=== PATIENT | male | born 1950 | race Hispanic/Latino ===

== ENCOUNTER 2018-05-08 02:34 | Emergency (ER) | payer BC ==
[~2018-05-08] VITALS: Ht 157.5 cm; Wt 77.0 kg
[~2018-05-08 02:34] MED LIST: FISH OIL300 MG PO; LOPID600 MG PO; LOVASTATIN10 M1 PO; NAPROSYN500 MG PO; OMEPRAZOLE20 MG PO
[2018-05-08] MEDS ORDERED: AMOXICILLIN500 MG PO (05:42)
[2018-05-08] MEDS ORDERED: CODEINE/GUAIFEN1 SOL PO (05:42)
[2018-05-08 06:00] VITALS: BP 145/74
[2018-05-08] MEDS ORDERED: EPIPEN 2-P0.3 MG/0.3 IM (09:16)
[2018-05-08] MEDS ORDERED: DOXYCYC MONO100 M2 PO (09:16)
[2018-05-08] MEDS ORDERED: PROAIR HFA108 MCG/AC PO (09:16)
[2018-05-08] MEDS ORDERED: PREDNISONE50 MG PO (09:16)
== END 2018-05-08 06:07 | disposition home or self-care (01) | DRG 153 ==
LOC: ED 02:34
DX: J02.9 Acute pharyngitis, unspecified (principal); E87.2 Acidosis; J40 Bronchitis, not specified as acute or chronic; R05 Cough; R09.81 Nasal congestion; J06.9 Acute upper respiratory infection, unspecified; R06.1 Stridor
CPT/HCPCS: Q9967

== ENCOUNTER 2018-05-08 06:10 | Emergency (ER) | payer BC ==
[~2018-05-08] VITALS: Ht 157.5 cm; Wt 77.0 kg
[~2018-05-08 06:10] MED LIST changes: +AMOXICILLIN500 MG PO; +CODEINE/GUAIFEN1 SOL PO
[2018-05-08 06:45] LABS: HEMATOCRIT 44.4 % (39.0-50.0); HEMOGLOBIN 15.2 g/dl (14.0-18.0); IMMATURE GRANULOCYTES 0.7 % (0.0-5.0); MEAN CELL VOLUME 89.3 fL CALC (80.0-100.0); MEAN CORPUSCULAR HGB 30.6 pG CALC (26.0-32.0); MEAN CORPUSCULAR HGB CONC 34.2 g/L CALC (32.0-36.0); NEUT# 9.86 thou/uL (1.82-7.42); RED BLOOD COUNT 4.97 mill/uL (4.70-6.10); RED CELL DISTRI WIDTH 12.8 % (11.5-15.5)
[2018-05-08 06:52] LABS: ALBUMIN 4.8 g/dL (3.2-5.0); ALKALINE PHOSPHATASE 98 u/l (38-126); ANION GAP 19 (6-22 (CALC)); BILIRUBIN, TOTAL 0.9 mg/dL (0.0-1.4); BUN 17 mg/dL (8-23); BUN/CREATININE RATIO 26 (12-20 (CALC)); CARBON DIOXIDE 23 mmol/l (22-30); CHLORIDE 104 mmol/l (95-108); CREATININE 0.7 mg/dL (0.7-1.3); GFR > 60 ML/MIN (>=60 (CALC)); GFR FOR AFR.AMER. > 60 ML/MIN (>=60 (CALC)); POTASSIUM 4.3 mmol/l (3.5-5.1); SGOT/AST 39 u/l (19-48); SODIUM 141 mmol/l (137-146); TOTAL PROTEIN 8.4 g/dL (6.3-8.2)
[2018-05-08] MEDS ORDERED: PREDNISONE50 MG PO (09:16)
[2018-05-08] MEDS ORDERED: PROAIR HFA108 MCG/AC PO (09:16)
[2018-05-08] MEDS ORDERED: DOXYCYC MONO100 M2 PO (09:16)
[2018-05-08] MEDS ORDERED: EPIPEN 2-P0.3 MG/0.3 IM (09:16)
[2018-05-08 09:24] VITALS: BP 156/86
== END 2018-05-08 10:00 | disposition home or self-care (01) | DRG 153 ==
LOC: ED 06:10
PROVIDERS: Emergency Medicine
DX: J06.9 Acute upper respiratory infection, unspecified (principal); E87.2 Acidosis; R06.1 Stridor; R06.02 Shortness of breath; R05 Cough; R61 Generalized hyperhidrosis
CPT/HCPCS: Q9967